=== PATIENT | female | born 1970 | race Caucasian/White ===

== ENCOUNTER 2016-03-19 18:44 | Emergency (ER) | payer SELFPAY ==
[~2016-03-19] VITALS: Ht 162.6 cm; Wt 72.1 kg
[2016-03-19 19:17] VITALS: BP 125/79
== END 2016-03-19 20:19 | disposition home or self-care (01) ==
LOC: ER 18:45
DX: S16.1XXA Strain of muscle, fascia and tendon at neck level, initial encounter (principal); M62.838 Other muscle spasm; K80.20 Calculus of gallbladder without cholecystitis without obstruction; Z98.890 Other specified postprocedural states; X58.XXXA Exposure to other specified factors, initial encounter; Y93.9 Activity, unspecified; Y92.9 Unspecified place or not applicable; Y99.9 Unspecified external cause status
CPT/HCPCS: A4606; Z7610

== ENCOUNTER 2016-05-18 17:49 | Emergency (ER) | payer SELFPAY ==
[~2016-05-18] VITALS: Ht 162.6 cm; Wt 71.7 kg
[2016-05-18 18:00] VITALS: BP 120/91
[2016-05-18] MEDS ORDERED: IBUPROFEN 600 MG TABLET PO ONE ×2 (19:19→19:30)
== END 2016-05-18 19:31 | disposition home or self-care (01) ==
LOC: ER 17:51
DX: S09.90XA Unspecified injury of head, initial encounter (principal); W22.8XXA Striking against or struck by other objects, initial encounter; Y92.89 Other specified places as the place of occurrence of the external cause; Y93.89 Activity, other specified; Y99.8 Other external cause status
CPT/HCPCS: A4606; Z7610

== ENCOUNTER 2017-01-26 23:09 | Emergency (ER) | payer OTHER ==
[~2017-01-26] VITALS: Ht 167.6 cm; Wt 63.5 kg
--- NOTE | 2017-01-26 23:15 | NUR ---
TO BED 1 A 47 YO FEMALE PT BIBA#860 FROM HOME, PT C/O RUQ ABD PAIN X 3 HOURS [employer], PT STATES SHE IS NAUSEOUS, WITHOUT VOMITING. NAD NOTED. VSS. NONDIAPHORETIC. GOWNED. COMFORT MEASURES RENDERED.
[2017-01-27] MEDS ORDERED: ONDANSETRON HCL/PF 4 MG/2 ML VIAL IVP ONE
[2017-01-27] MEDS ORDERED: IV NS 0.9% 1,000 ML BAG IV ONE
[2017-01-27] MEDS ORDERED: ONDANSETRON HCL/PF 4 MG/2 ML VIAL ONE (00:05)
[2017-01-27] MEDS ORDERED: FAMOTIDINE/PF INJ 20 MG/2 ML VIAL IV ONE ×2 (00:05)
--- NOTE | 2017-01-27 00:15 | NUR ---
medicated patient as ordered by Dr Harris.
[2017-01-27 00:23] LABS: BASOPHILS % (AUTO) 0.4 % (0.0-2.0); EOSINOPHILS % (AUTO) 0.3 % (0.0-6.0); HEMATOCRIT 41 % (33-45); HEMOGLOBIN 13.8 g/dL (11.5-14.8); LYMPHOCYTES # (AUTO) 1.4 /CMM (0.8-4.8); MEAN CORPUSCULAR HEMOGLOBIN 30 PG (26.0-33.0); MEAN CORPUSCULAR HGB CONC 34 g/dl (31.0-36.0); MEAN CORPUSCULAR VOLUME 88 fL (82-100); MONOCYTES # (AUTO) 0.5 /CMM (0.1-1.30); MONOCYTES % (AUTO) 4.5 % (2.0-12.0); NEUTROPHILS # (AUTO) 8.6 /CMM (1.8-8.9); NEUTROPHILS % (AUTO) 81.8 % (43.0-81.0); PLATELET COUNT (AUTO) 230 /CMM (150-450); RDW COEFFICIENT OF VARIATION 13.1 (11.5-15.0); WHITE BLOOD COUNT (AUTO) 10.6 K/uL (4.3-11.0)
[2017-01-27 00:41] LABS: CALCIUM, SERUM 9.9 mg/dL (8.5-10.1); CREATININE 0.9 mg/dL (0.6-1.3); POTASSIUM 3.8 mmol/L (3.5-5.1)
[2017-01-27 00:45] LABS: ALBUMIN 4.3 g/dL (3.4-5.0); BILIRUBIN,DIRECT 0.1 mg/dL (0.0-0.2); BILIRUBIN,TOTAL 0.4 mg/dL (0.2-1.0); TOTAL PROTEIN, SERUM 8.2 g/dL (6.4-8.2)
--- NOTE | 2017-01-27 01:10 | NUR ---
STARTED A SALINE LOCK ON THE RAC G18, BLOOD DRAWN AND SENT TO LAB.
--- NOTE | 2017-01-27 01:54 | NUR ---
IV removed. Catheter intact and site benign. Pressure and 4x4 applied to site. No bleeding noted. Patient discharged to home in stable condition. Written and verbal after care instructions given. Patient verbalizes understanding of instruction. Patient is ambulatory with steady gait, no further complaints.
[2017-01-27 01:56] VITALS: BP 119/74
== END 2017-01-27 01:57 | disposition home or self-care (01) ==
LOC: ER 23:14
DX: T62.91XA Toxic effect of unspecified noxious substance eaten as food, accidental (unintentional), initial encounter (principal); K29.00 Acute gastritis without bleeding; Y92.9 Unspecified place or not applicable
CPT/HCPCS: 36415; 80048; 80076; 83690; 85025; 93005; 96361; 96374; 96375; 99285; A4606; J2405; J3490; J7030; Z7610

== ENCOUNTER 2019-02-06 12:03 | Emergency (ER) | payer OTHER ==
[~2019-02-06] VITALS: Ht 162.6 cm; Wt 83.0 kg
[2019-02-06 12:15] VITALS: BP 139/98
[2019-02-06] MEDS ORDERED: FLUORESCEIN SODIUM OPHTH 1 EA STRIP OP ONE (12:30)
[2019-02-06] MEDS ORDERED: TETRACAINE HCL 0.5% OPHTALMIC 15 ML BOTTLE OP ONE (12:30)
[2019-02-06] MEDS ORDERED: FLUORESCEIN SODIUM OPHTH 1 EA STRIP ONE (12:31)
== END 2019-02-06 12:54 | disposition home or self-care (01) ==
LOC: ER 12:08
DX: H57.89 Other specified disorders of eye and adnexa (principal); Z98.890 Other specified postprocedural states

== ENCOUNTER 2019-02-24 11:03 | Emergency (ER) | payer OTHER ==
[~2019-02-24] VITALS: Ht 162.6 cm; Wt 83.0 kg
[2019-02-24 11:09] VITALS: BP 119/75
--- NOTE | 2019-02-24 11:28 | NUR ---
SEEN AND EXAMINED BY NOAH MEEKS
--- NOTE | 2019-02-24 11:40 | NUR ---
RN [facility] AT BEDSIDE FOR XRAY.
--- NOTE | 2019-02-24 12:14 | NUR ---
Patient discharged to home in stable condition. Written and verbal after care instructions given. Patient verbalizes understanding of instruction.
== END 2019-02-24 12:15 | disposition home or self-care (01) ==
LOC: ER 11:03
DX: J40 Bronchitis, not specified as acute or chronic (principal); Z98.890 Other specified postprocedural states
CPT/HCPCS: 71045-TC

== ENCOUNTER 2021-05-03 10:29 | Emergency (ER) | payer OTHER ==
[~2021-05-03] VITALS: Ht 162.6 cm; Wt 83.9 kg
--- NOTE | 2021-05-03 10:42 | NUR ---
BIBS C/O UPPER BACK PAIN X 2 WEEKS. VITALS ARE WITHIN NORMAL LIMITS. BREATHING IS EVEN AND UNLABORED. WARM BLANKET PROVIDED FOR COMFORTING. AWAITING MD HUBER.
--- NOTE | 2021-05-03 11:19 | NUR ---
DR DAI AT BEDSIDE
[2021-05-03] MEDS ORDERED: KETOROLAC TROMETHAMINE INJ 30 MG/ML VIAL ONE (11:27)
[2021-05-03] MEDS ORDERED: KETOROLAC TROMETHAMINE INJ 60 MG/2 ML VIAL IM ONE (11:30)
--- NOTE | 2021-05-03 11:48 | NUR ---
X RAY AT BEDSIDE
--- NOTE | 2021-05-03 12:36 | NUR ---
Patient discharged to home in stable condition. Written and verbal after care instructions given. Patient verbalizes understanding of instruction.
[2021-05-03 12:37] VITALS: BP 117/72
== END 2021-05-03 12:37 | disposition home or self-care (01) ==
LOC: ER 10:33
DX: M62.830 Muscle spasm of back (principal); M54.6 Pain in thoracic spine; Z79.899 Other long term (current) drug therapy
CPT/HCPCS: 71045; 93005; 96372; 99283; J1885

== ENCOUNTER 2021-10-14 08:31 | Emergency (ER) | payer OTHER ==
[~2021-10-14] VITALS: Ht 162.6 cm; Wt 81.6 kg
--- NOTE | 2021-10-14 08:44 | NUR ---
BIBS FOR C/O LOWER BACK PAIN 12/25 X 5 DAYS. THE PATIENT DENIES HAVING ANY TRAUMA. IN ROOM AIR AND DENIES SOB. RESPIRATION REGULAR AND UNLABORED. WILL CONTINUE TO MONITOR THE PATIENT.
[2021-10-14] MEDS ORDERED: CYCL5TAB PO (10:09)
[2021-10-14] MEDS ORDERED: NAPR-1009 PO (10:09)
[2021-10-14] MEDS ORDERED: KETOROLAC TROMETHAMINE 15 MG/ML VIAL ONE (10:13)
[2021-10-14] MEDS ORDERED: CYCLOBENZAPRINE 10 MG TABLET ONE (10:13)
--- NOTE | 2021-10-14 10:23 | NUR ---
Patient discharged to home in stable condition. Written and verbal after care instructions given. Patient verbalizes understanding of instruction.
[2021-10-14 10:24] VITALS: BP 129/82
[2021-10-14] MEDS ORDERED: KETOROLAC TROMETHAMINE INJ 60 MG/2 ML VIAL IM ONE (10:30)
[2021-10-14] MEDS ORDERED: CYCLOBENZAPRINE 10 MG TABLET PO ONE (10:30)
== END 2021-10-14 10:24 | disposition home or self-care (01) ==
LOC: ER 08:34
DX: S39.012A Strain of muscle, fascia and tendon of lower back, initial encounter (principal); Z98.890 Other specified postprocedural states; Z79.899 Other long term (current) drug therapy; X50.0XXA Overexertion from strenuous movement or load, initial encounter; Y93.89 Activity, other specified; Y92.89 Other specified places as the place of occurrence of the external cause; Y99.8 Other external cause status
CPT/HCPCS: 99284; 72131; 96372; J1885

== ENCOUNTER 2021-10-27 11:04 | Emergency (ER) | payer OTHER ==
[~2021-10-27] VITALS: Ht 162.6 cm; Wt 81.6 kg
[~2021-10-27 11:04] MED LIST: CYCL5TAB PO; NAPR-1009 PO
[2021-10-27 11:53] LABS: EOSINOPHILS % (AUTO) 1.4 % (0.0-6.0); HEMATOCRIT 38 % (33-45); LYMPHOCYTES % (AUTO) 40.9 % (20.0-44.0); MEAN CORPUSCULAR HGB CONC 34 g/dl (31.0-36.0); MEAN CORPUSCULAR VOLUME 88 fL (82-100); MONOCYTES # (AUTO) 0.4 K/uL (0.1-1.30); MONOCYTES % (AUTO) 7.9 % (2.0-12.0); NEUTROPHILS # (AUTO) 2.4 K/uL (1.8-8.9); NEUTROPHILS % (AUTO) 48.8 % (43.0-81.0); PLATELET COUNT (AUTO) 253 K/uL (150-450); RED BLOOD CELL COUNT(AUTO) 4.31 MIL/uL (4.0-5.2); WHITE BLOOD COUNT (AUTO) 4.9 K/uL (4.3-11.0)
--- NOTE | 2021-10-27 12:00 | NUR ---
NAD. NO obvious distress Status Quo- Updated with plan of care. Awaiting disposition
[2021-10-27 12:18] LABS: ALBUMIN 4.2 g/dL (3.4-5.0); BILIRUBIN,TOTAL 0.8 mg/dL (0.2-1.0); CALCIUM, SERUM 8.8 mg/dL (8.5-10.1); CREATININE 0.9 mg/dL (0.6-1.3); POTASSIUM 4.4 mmol/L (3.5-5.1); TOTAL PROTEIN, SERUM 7.5 g/dL (6.4-8.2)
[2021-10-27 12:47] LABS: BILIRUBIN,URINE NEGATIVE (NEGATIVE); COLOR,URINE YELLOW (YELLOW); LEUKOCYTE ESTERASE ,URINE NEGATIVE (NEGATIVE); NITRITE, URINE NEGATIVE (NEGATIVE); PROTEIN,URINE NEGATIVE (NEGATIVE); UGLUCOSE NEGATIVE (NEGATIVE); UROBILINOGEN,URINE 0.2 EU/dL (0.2)
--- NOTE | 2021-10-27 13:10 | NUR ---
Patient discharged to home in stable condition. Written and verbal after care instructions given. Patient verbalizes understanding of instruction.
[2021-10-27 13:11] VITALS: BP 128/79
[2021-10-27 13:22] LABS: BACTERIA,URINE Few /HPF (None Seen); MUCUS,URINE Few /LPF (None Seen); RBC,URINE 21-50 /HPF (0-2); SQUAMOUS EPITHELIAL CELL,UR Few /HPF (None Seen); WBC,URINE 0-2 /HPF (0-3)
== END 2021-10-27 13:13 | disposition home or self-care (01) ==
LOC: ER 11:09
DX: D25.9 Leiomyoma of uterus, unspecified (principal); N93.9 Abnormal uterine and vaginal bleeding, unspecified; Z98.890 Other specified postprocedural states; Z79.899 Other long term (current) drug therapy
CPT/HCPCS: 36415; 76856-TC; 80053-TC; 81001; 85025-TC; 86850-TC

== ENCOUNTER 2022-03-01 07:41 | Emergency (ER) | payer OTHER ==
[~2022-03-01] VITALS: Ht 162.6 cm; Wt 77.1 kg
[2022-03-01 08:02] VITALS: BP 116/69
[2022-03-01] MEDS ORDERED: IBUP-1955 PO (08:21)
--- NOTE | 2022-03-01 08:30 | NUR ---
Pt states "I had covid test couple days ago- NEGATIVE its my throat- it hurts a lot"
--- NOTE | 2022-03-01 09:02 | NUR ---
Seen and Examined by MD - Verbal instructions by same. For discharge. Pt Eloped prior to [facility]
== END 2022-03-01 09:12 | disposition home or self-care (01) ==
LOC: ER 07:49
DX: Z53.21 Procedure and treatment not carried out due to patient leaving prior to being seen by health care provider (principal)

== ENCOUNTER 2023-09-04 11:50 | Emergency (ER) | payer OTHER ==
[~2023-09-04] VITALS: Ht 162.6 cm; Wt 69.4 kg
[~2023-09-04 11:50] MED LIST changes: +IBUP-1955 PO
[2023-09-04] MEDS: IBUPROFEN 600 MG TABLET PO ONE (14:00)
[2023-09-04] MEDS: ACETAMINOPHEN ES 500 MG TABLET PO ONE (14:00)
[2023-09-04] MEDS: LIDOCAINE 5% (PATCH) 1 EA PATCH TP ONE (14:00)
[2023-09-04] MEDS: CYCLOBENZAPRINE 10 MG TABLET PO ONE (14:00)
[2023-09-04] MEDS ORDERED: LIDOCAINE 5% (PATCH) 1 EA PATCH TP ONE (14:16)
[2023-09-04] MEDS ORDERED: ACETAMINOPHEN ES 500 MG TABLET ONE (14:16)
[2023-09-04] MEDS ORDERED: CYCLOBENZAPRINE 10 MG TABLET ONE (14:16)
[2023-09-04] MEDS ORDERED: IBUPROFEN 600 MG TABLET ONE (14:17)
[2023-09-04] MEDS ORDERED: CYCL5TAB PO (14:28)
[2023-09-04] MEDS ORDERED: IBUP-1955 PO (14:28)
[2023-09-04] MEDS ORDERED: ACET-2605 PO (14:28)
[2023-09-04 14:34] VITALS: BP 130/81; TEMP 98.3; O2SAT 99
== END 2023-09-04 14:35 | disposition home or self-care (01) ==
LOC: ER 12:08
DX: R51.9 Headache, unspecified (principal); F17.200 Nicotine dependence, unspecified, uncomplicated

== ENCOUNTER 2023-09-25 11:31 | Emergency (ER) | payer OTHER ==
[~2023-09-25] VITALS: Ht 162.6 cm; Wt 68.9 kg
[~2023-09-25 11:31] MED LIST changes: +ACET-2605 PO
[2023-09-25 11:41] VITALS: BP 121/85; TEMP 98.3; O2SAT 97
== END 2023-09-25 12:36 | disposition home or self-care (01) ==
LOC: ER 12:08
DX: S09.8XXA Other specified injuries of head, initial encounter (principal); R11.0 Nausea; F17.200 Nicotine dependence, unspecified, uncomplicated; W22.09XA Striking against other stationary object, initial encounter; Y93.89 Activity, other specified; Y92.89 Other specified places as the place of occurrence of the external cause; Y99.8 Other external cause status

== ENCOUNTER 2023-10-17 20:42 | Emergency (ER) | payer OTHER | END 2023-10-18 00:25 | disposition left against medical advice (07) | LOC: ER 20:46 | DX: R50.9 Fever, unspecified (principal); M79.10 Myalgia, unspecified site; Z53.21 Procedure and treatment not carried out due to patient leaving prior to being seen by health care provider ==